=== PATIENT | female | born 1950 | race Two or more races ===

== ENCOUNTER 2017-04-15 09:21 | Emergency (ER) | payer OTHER ==
[~2017-04-15] VITALS: Ht 149.9 cm; Wt 83.9 kg
[~2017-04-15 09:21] MED LIST: ASPI-231 PO; ATOR20TA50 PO; FURO20TA3 PO; INSLANTI SC; LISI2.5T47 PO; METF-371 PO
[2017-04-15 10:14] VITALS: BP 177/66
== END 2017-04-15 10:48 | disposition home or self-care (01) ==
LOC: ER 09:21
DX: T16.1XXA Foreign body in right ear, initial encounter (principal); H66.91 Otitis media, unspecified, right ear; I11.0 Hypertensive heart disease with heart failure; I50.9 Heart failure, unspecified; E11.9 Type 2 diabetes mellitus without complications; E78.5 Hyperlipidemia, unspecified; Z86.73 Personal history of transient ischemic attack (TIA), and cerebral infarction without residual deficits; Z79.4 Long term (current) use of insulin

== ENCOUNTER 2017-11-30 21:20 | Inpatient (IN) | payer OTHER ==
[~2017-11-30] VITALS: Ht 157.5 cm; Wt 76.2 kg
[2017-11-30 22:11] LABS: Basophils # (auto) 0 uL; Basophils % (auto) 0.5 % (0.0-2.0); Eosinophils # (auto) 0.2 uL; Eosinophils % (auto) 2.3 % (0.0-7.0); Hematocrit 33.3 % (36.0-46.0); Lymphocytes # (auto) 1.2 uL; Mean Corpuscular Hemoglobin 32.6 pg (28.0-32.0); Mean Corpuscular Hgb Conc. 33.1 g/dL (32.0-36.0); Mean Corpuscular Volume 98.4 fL (80.0-100.0); Monocytes # (auto) 0.4 uL; Monocytes % (auto) 5.1 % (0.0-12.0); Neutrophils # (auto) 6.2 uL; Neutrophils % (auto) 77.1 % (37.0-80.0); Nucleated Red Blood Cells % 0.1 %; Platelet Count (auto) 265 10^3/uL (140-450); Red Blood Cells 3.38 10^6/uL (4.0-5.20); Red Cell Distribution Width 14.7 % (11.8-14.3); White Blood Cell 8.1 10^3/uL (4.4-10.8)
[2017-11-30 22:23] LABS: Albumin 3.6 g/dL (3.4-5.0); BUN/Creatinine Ratio 26.1; Calcium 9.1 mg/dL (8.5-10.1); Potassium 4.5 mmol/L (3.5-5.1)
[2017-11-30 22:26] LABS: Bilirubin, Total 0.3 mg/dL (0.2-1.0); Total Protein 7.8 g/dL (6.4-8.2)
[2017-12-01] MEDS ORDERED: LIDOCAINE W/ EPINEPHRINE 1% 20ML VIAL ONE (00:19)
[2017-12-01] MEDS ORDERED: NEOMYCIN-BACITRACIN-POLYM UNITDOSE PKG TOP OINT TOP ONE (00:30)
[2017-12-01] MEDS ORDERED: LIDOCAINE W/ EPINEPHRINE 1% 20ML VIAL ID ONE (00:30)
[2017-12-01 02:08] LABS: Urine Bacteria MOD /hpf (None Seen); Urine Blood Negative /uL (Negative); Urine Hyaline Cast FEW /lpf (0 - 2); Urine Mucus FEW (None Seen); Urine Specific Gravity 1.012 (1.001-1.035); Urine WBC 75 /hpf (0 - 5)
[2017-12-01] MEDS ORDERED: cefTRIAXone 1GM/10ml IVPUSH 10 ML IV ONE (02:30)
[2017-12-01] MEDS ORDERED: DEXTROSE (50%) 50ML SYRG IV PRN (07:45)
[2017-12-01] MEDS ORDERED: ACETAMINOPHEN 500 MG TAB PO PRN (07:45)
[2017-12-01] MEDS ORDERED: HYDROcodone-ACET 5/325MG TAB PO PRN (07:45)
[2017-12-01] MEDS ORDERED: ONDANSETRON HCL 4 MG/2 ML VIAL IV PRN (07:45)
[2017-12-01] MEDS ORDERED: cefTRIAXone 1GM/10ml IVPUSH 10 ML IV SCH (09:00)
[2017-12-01] MEDS ORDERED: FUROSEMIDE 20 MG TAB PO SCH (10:00)
[2017-12-01] MEDS ORDERED: LISINOPRIL 20 MG TAB PO SCH (10:00)
[2017-12-01] MEDS ORDERED: LISINOPRIL 5 MG TAB PO SCH (10:00)
[2017-12-01] MEDS ORDERED: LISI10TA6 PO (10:30)
[2017-12-01] MEDS ORDERED: LISI-646 PO (10:30)
[2017-12-01] MEDS: InsuLIN REG 1unit/0.01ml Soln (100units/ml) SC SCH ×2 (11:30→17:00)
[2017-12-01] MEDS: ACCU-CHEK COMFORT CURVE STRIP VI SCH ×2 (11:32→17:00)
[2017-12-01 14:00] VITALS: BP 158/71
[2017-12-01 17:00] VITALS: BP 158/71
[2017-12-01 17:40] VITALS: BP 143/73
[2017-12-01] MEDS ORDERED: ATORVASTATIN 20 MG TAB PO SCH (22:00)
== END 2017-12-01 18:48 | disposition home or self-care (01) | DRG 682 ==
LOC: ER 21:20 → OVERFLOW 21:21 → CENTRAL 12-01 14:00
PROVIDERS: ADMIT Nurse Practitioner Family; ATTEND Internal Medicine
DX: N17.0 Acute kidney failure with tubular necrosis (principal); G93.40 Encephalopathy, unspecified; N30.00 Acute cystitis without hematuria; S09.90XA Unspecified injury of head, initial encounter; S01.01XA Laceration without foreign body of scalp, initial encounter; I25.10 Atherosclerotic heart disease of native coronary artery without angina pectoris; I11.0 Hypertensive heart disease with heart failure; E78.5 Hyperlipidemia, unspecified; W18.39XA Other fall on same level, initial encounter; E11.9 Type 2 diabetes mellitus without complications; I50.9 Heart failure, unspecified; Z79.4 Long term (current) use of insulin; Z79.82 Long term (current) use of aspirin; Z86.73 Personal history of transient ischemic attack (TIA), and cerebral infarction without residual deficits; Y93.89 Activity, other specified; Y92.89 Other specified places as the place of occurrence of the external cause; Y99.8 Other external cause status; I25.2 Old myocardial infarction
CPT/HCPCS: 12032; 36415; 70450; 72125; 72128; 72131; 80053; 81001; 82962; 84484; 85025; 87086; 87088; 87186; 92610; 93005; 96374; 96376; J0696

== ENCOUNTER 2018-02-05 13:32 | Inpatient (IN) | payer OTHER ==
[~2018-02-05] VITALS: Ht 152.4 cm; Wt 67.7 kg
[~2018-02-05 13:32] MED LIST changes: +LISI-646 PO; +LISI10TA6 PO; -LISI2.5T47 PO
[2018-02-05 15:04] LABS: Basophils # (auto) 0 uL; Basophils % (auto) 0.6 % (0.0-2.0); Eosinophils # (auto) 0.1 uL; Eosinophils % (auto) 1.5 % (0.0-7.0); Hematocrit 35.8 % (36.0-46.0); Hemoglobin 11.8 g/dL (12.2-16.2); Lymphocytes # (auto) 1.5 uL; Lymphocytes % (auto) 24.1 % (10.0-50.0); Mean Corpuscular Hemoglobin 31.9 pg (28.0-32.0); Mean Corpuscular Hgb Conc. 32.9 g/dL (32.0-36.0); Mean Corpuscular Volume 96.8 fL (80.0-100.0); Monocytes # (auto) 0.3 uL; Monocytes % (auto) 5.8 % (0.0-12.0); Neutrophils # (auto) 4.1 uL; Nucleated Red Blood Cells % 0.1 %; Platelet Count (auto) 244 10^3/uL (140-450); Red Blood Cells 3.69 10^6/uL (4.0-5.20); Red Cell Distribution Width 14.6 % (11.8-14.3); White Blood Cell 6.1 10^3/uL (4.4-10.8)
[2018-02-05 15:21] LABS: Albumin 3.8 g/dL (3.4-5.0); Calcium 10.4 mg/dL (8.5-10.1); Potassium 5.2 mmol/L (3.5-5.1)
[2018-02-05 15:24] LABS: INR 0.95 (0.9-1.15); Partial Thromboplastin Time 26.6 sec (23.78-33.04); Prothrombin Time 10.2 sec (9.27-12.13)
[2018-02-05 15:25] LABS: Bilirubin, Total 0.3 mg/dL (0.2-1.0); Total Protein 7.6 g/dL (6.4-8.2)
[2018-02-05 15:26] LABS: BUN/Creatinine Ratio 27.2
[2018-02-05] MEDS ORDERED: ENOXAPARIN SOD 80 MG/0.8ML SYRINGE SC ONE (16:45)
[2018-02-05] MEDS ORDERED: TEMAZEPAM 15 MG CAP PO PRN (21:45)
[2018-02-05] MEDS ORDERED: DEXTROSE (50%) 50ML SYRG IV PRN (21:45)
[2018-02-05] MEDS ORDERED: HYDROcodone-ACET 5/325MG TAB PO PRN (21:45)
[2018-02-05] MEDS ORDERED: ACETAMINOPHEN 325 MG TAB PO PRN (21:45)
[2018-02-05] MEDS ORDERED: MORPHINE SULFATE 4 MG/ML SYR/VIAL IV PRN (21:45)
[2018-02-05] MEDS ORDERED: ONDANSETRON HCL 4 MG/2 ML VIAL IV PRN (21:45)
[2018-02-05] MEDS ORDERED: cefTRIAXone 1GM/50ML D5W 50 ML IV ONE (22:00)
[2018-02-05] MEDS: InsuLIN REG 1unit/0.01ml Soln (100units/ml) SC SCH (22:00)
[2018-02-05] MEDS: ATORVASTATIN 20 MG TAB PO SCH (22:21)
[2018-02-05] MEDS: ACCU-CHEK COMFORT CURVE STRIP VI SCH (22:22)
[2018-02-05 23:07] VITALS: BP 144/76
[2018-02-05 23:10] VITALS: BP 144/76
[2018-02-06 05:00] VITALS: BP 134/71
[2018-02-06 06:42] LABS: Basophils # (auto) 0 uL; Basophils % (auto) 0.9 % (0.0-2.0); Eosinophils # (auto) 0.2 uL; Eosinophils % (auto) 2.7 % (0.0-7.0); Hematocrit 31.5 % (36.0-46.0); Hemoglobin 10.6 g/dL (12.2-16.2); Lymphocytes # (auto) 1.6 uL; Lymphocytes % (auto) 29.7 % (10.0-50.0); Mean Corpuscular Hemoglobin 32.2 pg (28.0-32.0); Mean Corpuscular Hgb Conc. 33.6 g/dL (32.0-36.0); Mean Corpuscular Volume 95.9 fL (80.0-100.0); Monocytes # (auto) 0.4 uL; Monocytes % (auto) 7.6 % (0.0-12.0); Neutrophils # (auto) 3.3 uL; Neutrophils % (auto) 59.1 % (37.0-80.0); Platelet Count (auto) 217 10^3/uL (140-450); Red Blood Cells 3.29 10^6/uL (4.0-5.20); Red Cell Distribution Width 14.2 % (11.8-14.3); White Blood Cell 5.5 10^3/uL (4.4-10.8)
[2018-02-06] MEDS: ACCU-CHEK COMFORT CURVE STRIP VI SCH ×4 (06:55→22:25)
[2018-02-06] MEDS: InsuLIN REG 1unit/0.01ml Soln (100units/ml) SC SCH ×4 (06:55→22:25)
[2018-02-06 06:56] LABS: BUN/Creatinine Ratio 27.7; Calcium 9.2 mg/dL (8.5-10.1)
[2018-02-06 08:43] VITALS: BP 128/64
[2018-02-06] MEDS: cefTRIAXone 1GM/50ML D5W 50 ML IV SCH (08:55)
[2018-02-06] MEDS: ASPirin-EC 81 mg tab PO SCH (08:55)
[2018-02-06] MEDS: FUROSEMIDE 20 MG TAB PO SCH (08:57)
[2018-02-06] MEDS: FAMOTIDINE 20 MG TAB PO SCH (08:57)
[2018-02-06] MEDS: CLINDAMYCIN 600MG IV 50 ML IV SCH ×3 (09:44→22:09)
[2018-02-06] MEDS ORDERED: ENOXAPARIN SOD 30 MG/0.3 ML SYRINGE SC SCH (10:00)
[2018-02-06] MEDS ORDERED: LISINOPRIL 20 MG TAB PO SCH (10:00)
[2018-02-06] MEDS ORDERED: MORPHINE SULFATE 10 MG/ML INJ 1ML SDV IV PRN (11:45)
[2018-02-06 12:25] VITALS: BP 134/71
[2018-02-06 16:23] VITALS: BP 132/67
[2018-02-06] MEDS ORDERED: ENOXAPARIN SOD 80 MG/0.8ML SYRINGE SC SCH (22:00)
[2018-02-06] MEDS: ATORVASTATIN 20 MG TAB PO SCH (22:09)
[2018-02-07 05:00] VITALS: BP 149/80
[2018-02-07] MEDS: InsuLIN REG 1unit/0.01ml Soln (100units/ml) SC SCH ×3 (05:29→17:00)
[2018-02-07] MEDS: CLINDAMYCIN 600MG IV 50 ML IV SCH ×2 (05:29→14:42)
[2018-02-07] MEDS: ACCU-CHEK COMFORT CURVE STRIP VI SCH ×3 (05:29→17:00)
[2018-02-07 06:50] LABS: BUN/Creatinine Ratio 26.3; Calcium 8.7 mg/dL (8.5-10.1); Magnesium 1.7 mg/dL (1.6-2.6); Potassium 3.8 mmol/L (3.5-5.1)
[2018-02-07 06:53] LABS: Basophils # (auto) 0 uL; Basophils % (auto) 0.4 % (0.0-2.0); Eosinophils # (auto) 0.2 uL; Eosinophils % (auto) 4.4 % (0.0-7.0); Hematocrit 29.1 % (36.0-46.0); Hemoglobin 9.9 g/dL (12.2-16.2); Lymphocytes # (auto) 2.2 uL; Lymphocytes % (auto) 41.7 % (10.0-50.0); Mean Corpuscular Hgb Conc. 34.2 g/dL (32.0-36.0); Mean Corpuscular Volume 96.5 fL (80.0-100.0); Monocytes # (auto) 0.4 uL; Monocytes % (auto) 7.5 % (0.0-12.0); Neutrophils # (auto) 2.5 uL; Platelet Count (auto) 210 10^3/uL (140-450); Red Blood Cells 3.01 10^6/uL (4.0-5.20); Red Cell Distribution Width 14.4 % (11.8-14.3); White Blood Cell 5.3 10^3/uL (4.4-10.8)
[2018-02-07 07:00] LABS: % Iron Saturation 29.7 % (15-50)
[2018-02-07 08:37] VITALS: BP 129/67
[2018-02-07 09:25] LABS: Ferritin 107.4 ng/mL (10-322)
[2018-02-07 09:26] LABS: Folate (Folic Acid) 11.5 ng/mL (5.38-24)
[2018-02-07] MEDS ORDERED: ENOXAPARIN SOD 80 MG/0.8ML SYRINGE SC SCH (10:00)
[2018-02-07] MEDS: ASPirin-EC 81 mg tab PO SCH (10:12)
[2018-02-07] MEDS: FAMOTIDINE 20 MG TAB PO SCH (10:12)
[2018-02-07] MEDS: FUROSEMIDE 20 MG TAB PO SCH (10:12)
[2018-02-07] MEDS: cefTRIAXone 1GM/50ML D5W 50 ML IV SCH (10:12)
[2018-02-07 13:23] VITALS: BP 117/63
[2018-02-07 16:41] VITALS: BP 140/67
[2018-02-07 17:35] VITALS: BP 140/67
== END 2018-02-07 18:42 | disposition home or self-care (01) | DRG 300 ==
LOC: ER 13:32 → WEST WING 22:33
PROVIDERS: ADMIT Nurse Practitioner Family; ATTEND Internal Medicine
DX: I82.811 Embolism and thrombosis of superficial veins of right lower extremity (principal); L03.115 Cellulitis of right lower limb; I31.3 Pericardial effusion (noninflammatory); N18.3 Chronic kidney disease, stage 3 (moderate); I12.9 Hypertensive chronic kidney disease with stage 1 through stage 4 chronic kidney disease, or unspecified chronic kidney disease; E11.22 Type 2 diabetes mellitus with diabetic chronic kidney disease; E11.51 Type 2 diabetes mellitus with diabetic peripheral angiopathy without gangrene; I82.432 Acute embolism and thrombosis of left popliteal vein; I70.0 Atherosclerosis of aorta; K80.20 Calculus of gallbladder without cholecystitis without obstruction; D64.9 Anemia, unspecified; I82.431 Acute embolism and thrombosis of right popliteal vein; S80.811A Abrasion, right lower leg, initial encounter; W18.39XA Other fall on same level, initial encounter; E78.5 Hyperlipidemia, unspecified; I25.10 Atherosclerotic heart disease of native coronary artery without angina pectoris; R91.1 Solitary pulmonary nodule; R29.6 Repeated falls; Z79.01 Long term (current) use of anticoagulants; Z79.4 Long term (current) use of insulin; Z86.73 Personal history of transient ischemic attack (TIA), and cerebral infarction without residual deficits; Z79.82 Long term (current) use of aspirin; Z82.49 Family history of ischemic heart disease and other diseases of the circulatory system; Z83.3 Family history of diabetes mellitus; I25.2 Old myocardial infarction; Y93.89 Activity, other specified; Y92.098 Other place in other non-institutional residence as the place of occurrence of the external cause; Y99.8 Other external cause status
CPT/HCPCS: 36415; 71045; 71250; 73590; 80048; 80053; 81241; 82607; 82728; 82746; 82962; 83090; 83540; 83550; 83735; 85025; 85301; 85303; 85306; 85610; 85613; 85670; 85705; 85730; 85732; 86147; 93005; 93926; 93970; 94761; 96372; 96374; G0378; J0696; J1815; J3490

== ENCOUNTER 2018-02-20 10:46 | Inpatient (IN) | payer OTHER ==
[~2018-02-20] VITALS: Ht 149.9 cm; Wt 69.5 kg
[~2018-02-20 10:46] MED LIST changes: -ASPI-231 PO; -FURO20TA3 PO; -LISI-646 PO
[2018-02-20] MEDS ORDERED: SODIUM CHLORIDE 0.9% 1,000 ML IV ONE (11:17)
[2018-02-20 11:40] LABS: Basophils # (auto) 0 uL; Basophils % (auto) 0.9 % (0.0-2.0); Eosinophils # (auto) 0.1 uL; Eosinophils % (auto) 2.2 % (0.0-7.0); Hematocrit 32.4 % (36.0-46.0); Hemoglobin 10.6 g/dL (12.2-16.2); Lymphocytes # (auto) 1.8 uL; Lymphocytes % (auto) 34.9 % (10.0-50.0); Mean Corpuscular Hemoglobin 31.5 pg (28.0-32.0); Mean Corpuscular Hgb Conc. 32.6 g/dL (32.0-36.0); Mean Corpuscular Volume 96.8 fL (80.0-100.0); Monocytes # (auto) 0.3 uL; Monocytes % (auto) 4.9 % (0.0-12.0); Neutrophils % (auto) 57.1 % (37.0-80.0); Platelet Count (auto) 254 10^3/uL (140-450); Red Blood Cells 3.35 10^6/uL (4.0-5.20); Red Cell Distribution Width 14.8 % (11.8-14.3); White Blood Cell 5.2 10^3/uL (4.4-10.8)
[2018-02-20 11:53] LABS: INR 1.19 (0.9-1.15); Partial Thromboplastin Time 34.5 sec (23.78-33.04); Prothrombin Time 12.6 sec (9.27-12.13)
[2018-02-20 11:59] LABS: Albumin 3.6 g/dL (3.4-5.0); Anion Gap 4 (5-15); Blood Urea Nitrogen 28 mg/dL (7-18); Calcium 9.2 mg/dL (8.5-10.1); Carbon Dioxide 28 mmol/L (21-32); Chloride 112 mmol/L (98-107); Glucose 78 mg/dL (74-106); Sodium 144 mmol/L (136-145)
[2018-02-20 12:03] LABS: Alanine Aminotransferase 15 U/L (13-56); Alkaline Phosphatase 50 U/L (45-117); Aspartate Aminotransferase 17 U/L (15-37); BUN/Creatinine Ratio 21.9; Bilirubin, Total 0.3 mg/dL (0.2-1.0); GFR African American 53 mL/min; GFR Non-African American 44 mL/min; Total Protein 7.3 g/dL (6.4-8.2)
[2018-02-20 13:39] LABS: Urine Bacteria FEW /hpf (None Seen); Urine Blood Negative /uL (Negative); Urine Specific Gravity 1.016 (1.001-1.035); Urine WBC 20 /hpf (0 - 5)
[2018-02-20] MEDS ORDERED: ACETAMINOPHEN 500 MG TAB PO PRN (14:00)
[2018-02-20] MEDS ORDERED: MORPHINE SULFATE 4 MG/ML SYR/VIAL IV PRN ×2 (14:00)
[2018-02-20] MEDS ORDERED: TEMAZEPAM 15 MG CAP PO PRN (14:00)
[2018-02-20] MEDS ORDERED: CLINDAMYCIN 600MG IV 50 ML IV SCH (14:00)
[2018-02-20] MEDS ORDERED: LORazepam 0.5 MG TAB PO PRN (14:00)
[2018-02-20] MEDS ORDERED: DEXTROSE (50%) 50ML SYRG IV PRN (14:00)
[2018-02-20] MEDS ORDERED: HYDROcodone-ACET 5/325MG TAB PO PRN (14:00)
[2018-02-20] MEDS ORDERED: NITROGLYCERIN 0.4 MG SL TAB SL PRN (14:00)
[2018-02-20] MEDS ORDERED: cefTRIAXone 1GM/50ML D5W 50 ML IV ONE (14:00)
[2018-02-20] MEDS ORDERED: PROMETHAZINE HCL 25 MG/ML 1ML IV PRN (14:00)
[2018-02-20] MEDS ORDERED: PANTOPRAZOLE 40 MG TAB PO ONE (14:15)
[2018-02-20 14:50] LABS: CRP High Sensitivity 0.49 mg/dL (< 0.3)
[2018-02-20] MEDS: CLINDAMYCIN 600MG IV 50 ML IV SCH ×2 (15:29→23:00)
[2018-02-20] MEDS ORDERED: LISINOPRIL 10 MG TAB PO ONE (15:30)
[2018-02-20 16:15] VITALS: BP 146/72
[2018-02-20] MEDS: ACCU-CHEK COMFORT CURVE STRIP VI SCH ×2 (16:34→21:48)
[2018-02-20] MEDS: InsuLIN REG 1unit/0.01ml Soln (100units/ml) SC SCH ×2 (16:34→21:48)
[2018-02-20 17:38] VITALS: BP 144/75
[2018-02-20 18:22] LABS: Hematocrit 30.6 % (36.0-46.0)
[2018-02-20] MEDS ORDERED: METF-371 PO (18:27)
[2018-02-20] MEDS ORDERED: FURO20TA3 PO (18:27)
[2018-02-20] MEDS ORDERED: ASPI-231 PO (18:27)
[2018-02-20] MEDS ORDERED: DOCU100T15 PO (18:27)
[2018-02-20] MEDS ORDERED: RIV15T PO (18:28)
[2018-02-20] MEDS: ATORVASTATIN 20 MG TAB PO SCH (21:49)
[2018-02-20 22:00] VITALS: BP 148/75
[2018-02-21 01:10] LABS: Hematocrit 26.2 % (36.0-46.0); Hemoglobin 8.7 g/dL (12.2-16.2)
[2018-02-21 05:00] VITALS: BP 115/65
[2018-02-21 06:16] LABS: Basophils # (auto) 0 uL; Basophils % (auto) 0.3 % (0.0-2.0); Eosinophils # (auto) 0.1 uL; Eosinophils % (auto) 2.2 % (0.0-7.0); Hematocrit 28.4 % (36.0-46.0); Hemoglobin 9.4 g/dL (12.2-16.2); Lymphocytes # (auto) 0.7 uL; Lymphocytes % (auto) 11.3 % (10.0-50.0); Mean Corpuscular Hemoglobin 32.1 pg (28.0-32.0); Mean Corpuscular Volume 97.5 fL (80.0-100.0); Monocytes # (auto) 0.3 uL; Monocytes % (auto) 5.9 % (0.0-12.0); Neutrophils # (auto) 4.7 uL; Neutrophils % (auto) 80.3 % (37.0-80.0); Platelet Count (auto) 220 10^3/uL (140-450); Red Blood Cells 2.92 10^6/uL (4.0-5.20); Red Cell Distribution Width 14.8 % (11.8-14.3); White Blood Cell 5.9 10^3/uL (4.4-10.8)
[2018-02-21] MEDS: CLINDAMYCIN 600MG IV 50 ML IV SCH ×3 (06:19→23:13)
[2018-02-21] MEDS: InsuLIN REG 1unit/0.01ml Soln (100units/ml) SC SCH ×4 (06:53→22:00)
[2018-02-21] MEDS: ACCU-CHEK COMFORT CURVE STRIP VI SCH ×4 (06:54→23:13)
[2018-02-21 08:47] VITALS: BP 122/65
[2018-02-21] MEDS: cefTRIAXone 1GM/50ML D5W 50 ML IV SCH (09:19)
[2018-02-21 09:35] LABS: Albumin 2.9 g/dL (3.4-5.0); Calcium 8.2 mg/dL (8.5-10.1); Potassium 4.2 mmol/L (3.5-5.1)
[2018-02-21 09:38] LABS: Bilirubin, Total 0.4 mg/dL (0.2-1.0); Total Protein 5.8 g/dL (6.4-8.2)
[2018-02-21] MEDS ORDERED: PATIENTS OWN MEDICATION (Atorvastatin Calcium 1 TAB) PO SCH (10:00)
[2018-02-21] MEDS ORDERED: PANTOPRAZOLE 40 MG TAB PO SCH (10:00)
[2018-02-21] MEDS: LISINOPRIL 10 MG TAB PO SCH (11:42)
[2018-02-21 12:36] VITALS: BP 128/79
[2018-02-21 17:00] VITALS: BP 135/75
[2018-02-21] MEDS: ATORVASTATIN 20 MG TAB PO SCH (21:46)
[2018-02-21] MEDS: PANTOPRAZOLE 40 MG TAB PO SCH (21:46)
[2018-02-21 22:14] VITALS: BP 124/60
[2018-02-22 05:39] VITALS: BP 122/65
[2018-02-22 06:00] LABS: Basophils # (auto) 0 uL; Basophils % (auto) 0.7 % (0.0-2.0); Eosinophils # (auto) 0.4 uL; Eosinophils % (auto) 8.1 % (0.0-7.0); Hematocrit 28.2 % (36.0-46.0); Hemoglobin 9.5 g/dL (12.2-16.2); Lymphocytes % (auto) 43.1 % (10.0-50.0); Mean Corpuscular Hemoglobin 32.3 pg (28.0-32.0); Mean Corpuscular Hgb Conc. 33.6 g/dL (32.0-36.0); Mean Corpuscular Volume 96.2 fL (80.0-100.0); Monocytes # (auto) 0.4 uL; Monocytes % (auto) 7.7 % (0.0-12.0); Neutrophils # (auto) 1.9 uL; Neutrophils % (auto) 40.4 % (37.0-80.0); Nucleated Red Blood Cells % 0.1 %; Platelet Count (auto) 219 10^3/uL (140-450); Red Blood Cells 2.94 10^6/uL (4.0-5.20); Red Cell Distribution Width 14.4 % (11.8-14.3); White Blood Cell 4.7 10^3/uL (4.4-10.8)
[2018-02-22 06:14] LABS: % Iron Saturation 30.3 % (15-50)
[2018-02-22 06:16] LABS: Calcium 8.1 mg/dL (8.5-10.1); Magnesium 2.1 mg/dL (1.6-2.6); Potassium 4.3 mmol/L (3.5-5.1)
[2018-02-22 06:20] LABS: INR 1.03 (0.9-1.15); Partial Thromboplastin Time 29.1 sec (23.78-33.04)
[2018-02-22 06:37] LABS: Ferritin 90.8 ng/mL (10-322); Folate (Folic Acid) 12.94 ng/mL (5.38-24)
[2018-02-22] MEDS: InsuLIN REG 1unit/0.01ml Soln (100units/ml) SC SCH ×4 (07:00→22:00)
[2018-02-22] MEDS: CLINDAMYCIN 600MG IV 50 ML IV SCH ×3 (07:13→23:16)
[2018-02-22] MEDS: ACCU-CHEK COMFORT CURVE STRIP VI SCH ×4 (07:16→23:20)
[2018-02-22] MEDS: cefTRIAXone 1GM/50ML D5W 50 ML IV SCH (08:49)
[2018-02-22] MEDS: PANTOPRAZOLE 40 MG TAB PO SCH ×3 (08:49→23:15)
[2018-02-22 09:00] VITALS: BP 123/64
[2018-02-22] MEDS ORDERED: SODIUM CHLORIDE LOCK 10 ML ONE (09:43)
[2018-02-22] MEDS ORDERED: LIDOCAINE VISCOUS 2% 15ML UD ONE (09:44)
[2018-02-22] MEDS ORDERED: diphenhdrAMINE HCL 50 MG/1 ML VL ONE (09:44)
[2018-02-22] MEDS: MIDAZOLAM HCL 5 MG/ML-1ML VIAL ONE ×2 (12:40→12:43)
[2018-02-22] MEDS: fentaNYL CITRATE 100 MCG/2 ML VL ONE ×2 (12:40→12:43)
[2018-02-22 13:00] VITALS: BP 149/72
[2018-02-22] MEDS: CYANOCOBALAMIN 500 MCG TAB PO SCH (14:15)
[2018-02-22] MEDS: LISINOPRIL 10 MG TAB PO SCH (14:15)
[2018-02-22 17:00] VITALS: BP 140/74
[2018-02-22] MEDS ORDERED: RIVAROXABAN 15 MG TAB PO SCH (17:30)
[2018-02-22 22:00] VITALS: BP 111/55
[2018-02-22] MEDS: ATORVASTATIN 20 MG TAB PO SCH (23:15)
[2018-02-23 05:00] VITALS: BP 124/66
[2018-02-23 06:20] LABS: Basophils # (auto) 0 uL; Basophils % (auto) 0.6 % (0.0-2.0); Eosinophils # (auto) 0.3 uL; Eosinophils % (auto) 5.5 % (0.0-7.0); Hematocrit 26.8 % (36.0-46.0); Lymphocytes # (auto) 1.9 uL; Mean Corpuscular Hemoglobin 32.6 pg (28.0-32.0); Mean Corpuscular Hgb Conc. 33.6 g/dL (32.0-36.0); Mean Corpuscular Volume 96.9 fL (80.0-100.0); Monocytes # (auto) 0.5 uL; Monocytes % (auto) 8.8 % (0.0-12.0); Neutrophils # (auto) 2.7 uL; Neutrophils % (auto) 50.1 % (37.0-80.0); Platelet Count (auto) 216 10^3/uL (140-450); Red Blood Cells 2.76 10^6/uL (4.0-5.20); Red Cell Distribution Width 14.7 % (11.8-14.3); White Blood Cell 5.4 10^3/uL (4.4-10.8)
[2018-02-23] MEDS: CLINDAMYCIN 600MG IV 50 ML IV SCH ×2 (06:24→15:05)
[2018-02-23 06:32] LABS: BUN/Creatinine Ratio 15.1; Calcium 8.2 mg/dL (8.5-10.1); Magnesium 2.3 mg/dL (1.6-2.6); Potassium 4.7 mmol/L (3.5-5.1)
[2018-02-23] MEDS: ACCU-CHEK COMFORT CURVE STRIP VI SCH ×2 (06:32→13:04)
[2018-02-23] MEDS: InsuLIN REG 1unit/0.01ml Soln (100units/ml) SC SCH ×2 (06:32→11:30)
[2018-02-23 09:00] VITALS: BP 132/60
[2018-02-23] MEDS: cefTRIAXone 1GM/50ML D5W 50 ML IV SCH (09:00)
[2018-02-23] MEDS: CYANOCOBALAMIN 500 MCG TAB PO SCH (09:00)
[2018-02-23] MEDS: PANTOPRAZOLE 40 MG TAB PO SCH (09:01)
[2018-02-23] MEDS ORDERED: DOCUSATE SOD 100 MG CAP PO SCH (10:00)
[2018-02-23 13:00] VITALS: BP 125/66
[2018-02-23] MEDS: LISINOPRIL 10 MG TAB PO SCH (13:05)
[2018-02-23 16:48] VITALS: BP 125/66
[2018-02-23 17:00] VITALS: BP 140/86
== END 2018-02-23 17:20 | disposition home health service (06) | DRG 378 ==
LOC: ER 10:46 → TELE 14:23 → TELE-EAST 16:30
PROVIDERS: ADMIT Internal Medicine; ATTEND Internal Medicine
PROC: 0DJ08ZZ Inspection of Upper Intestinal Tract, Via Natural or Artificial Opening Endoscopic (ICD-10-PCS; principal; 2018-02-22 12:40)
DX: K92.2 Gastrointestinal hemorrhage, unspecified (principal); L03.115 Cellulitis of right lower limb; N39.0 Urinary tract infection, site not specified; E78.5 Hyperlipidemia, unspecified; K80.20 Calculus of gallbladder without cholecystitis without obstruction; K44.9 Diaphragmatic hernia without obstruction or gangrene; D63.1 Anemia in chronic kidney disease; F03.90 Unspecified dementia, unspecified severity, without behavioral disturbance, psychotic disturbance, mood disturbance, and anxiety; I12.9 Hypertensive chronic kidney disease with stage 1 through stage 4 chronic kidney disease, or unspecified chronic kidney disease; E11.22 Type 2 diabetes mellitus with diabetic chronic kidney disease; I25.10 Atherosclerotic heart disease of native coronary artery without angina pectoris; R91.1 Solitary pulmonary nodule; S81.801A Unspecified open wound, right lower leg, initial encounter; X58.XXXA Exposure to other specified factors, initial encounter; K42.9 Umbilical hernia without obstruction or gangrene; K59.00 Constipation, unspecified; N18.9 Chronic kidney disease, unspecified; R04.0 Epistaxis; Z79.01 Long term (current) use of anticoagulants; Z80.3 Family history of malignant neoplasm of breast; Z82.3 Family history of stroke; Z82.49 Family history of ischemic heart disease and other diseases of the circulatory system; Z83.3 Family history of diabetes mellitus; Z86.718 Personal history of other venous thrombosis and embolism; Z86.73 Personal history of transient ischemic attack (TIA), and cerebral infarction without residual deficits; Z98.49 Cataract extraction status, unspecified eye; Y93.89 Activity, other specified; Y92.89 Other specified places as the place of occurrence of the external cause; I25.2 Old myocardial infarction
CPT/HCPCS: 36415; 71045; 74176; 80048; 80053; 81001; 82150; 82607; 82728; 82746; 82962; 83036; 83540; 83550; 83690; 83735; 83880; 84484; 85014; 85018; 85025; 85045; 85610; 85652; 85730; 86141; 87081; 92610; 93971; 97116; A6257; G0378; J0696; J1815; J2250; J3490

== ENCOUNTER 2019-12-12 15:25 | Emergency (ER) | payer OTHER ==
[~2019-12-12] VITALS: Ht 157.5 cm; Wt 56.8 kg
[~2019-12-12 15:25] MED LIST changes: +ASPI-231 PO; +DOCU100T15 PO; +FURO20TA3 PO; +LISI-648 PO; -LISI10TA6 PO
[2019-12-12] MEDS ORDERED: HYDROcodone-ACET 5/325MG TAB PO ONE (18:00)
[2019-12-12 18:07] VITALS: BP 192/75
[2019-12-12] MEDS ORDERED: cloNIDine HCL 0.1 MG TAB PO ONE (19:00)
== END 2019-12-12 19:18 | disposition home or self-care (01) ==
LOC: ER 15:25
DX: S42.211A Unspecified displaced fracture of surgical neck of right humerus, initial encounter for closed fracture (principal); S09.8XXA Other specified injuries of head, initial encounter; I16.0 Hypertensive urgency; E11.9 Type 2 diabetes mellitus without complications; I10 Essential (primary) hypertension; E78.5 Hyperlipidemia, unspecified; Z79.82 Long term (current) use of aspirin; Z79.899 Other long term (current) drug therapy; W06.XXXA Fall from bed, initial encounter; Y93.89 Activity, other specified; Y92.003 Bedroom of unspecified non-institutional (private) residence as the place of occurrence of the external cause; Y99.8 Other external cause status
CPT/HCPCS: 70450; 73030; 73060; 73090

== ENCOUNTER 2021-03-18 05:19 | Inpatient (IN) | payer OTHER ==
[~2021-03-18] VITALS: Ht 157.5 cm; Wt 53.1 kg
[2021-03-18] VITALS (19 sets, daily range): BP systolic 66–146; BP diastolic 29–109
[~2021-03-18 05:19] MED LIST changes: -ASPI-231 PO; +ASPI1TAB20 PO; -LISI-648 PO; +LISI-716 PO
[2021-03-18] MEDS ORDERED: SUCCINYLCHOLINE CHLORIDE 20 MG/ML 10ML VIAL IV ONE ×2 (05:34→06:00)
[2021-03-18] MEDS ORDERED: MIDAZOLAM DRIP 50 mg/50mL 50 ML IV ONE (05:34)
[2021-03-18] MEDS ORDERED: ETOMIDATE (2MG/ML) 20ML VIAL IV ONE ×2 (05:34→06:00)
[2021-03-18] MEDS ORDERED: NOREPINEPHRINE 8 MG/250ML KIT 250 ML IV ONE (05:41)
[2021-03-18] MEDS: NOREPINEPHRINE 8 MG/250ML KIT 250 ML IV SCH ×2 (05:50→10:29)
[2021-03-18 06:47] LABS: Lactic Acid w/Reflex 12.2 mmol/L (0.4-2.0)
[2021-03-18] MEDS ORDERED: SODIUM BICARBONATE 8.4 % INJ 50ML VIAL IV ONE ×3 (07:29→11:15)
[2021-03-18] MEDS ORDERED: cefTRIAXone 1GM/50ML D5W 50 ML IV ONE (07:30)
[2021-03-18] MEDS ORDERED: PHENYLEPHRINE IV 250 ML IV ONE (07:46)
[2021-03-18] MEDS: MIDAZOLAM DRIP 50 mg/50mL 50 ML IV SCH ×2 (08:00→14:13)
[2021-03-18 08:09] LABS: Hemoglobin 10.2 g/dL (12.2-16.2); Mean Corpuscular Hemoglobin 32.5 pg (28.0-32.0); Mean Corpuscular Hgb Conc. 31.1 g/dL (32.0-36.0); Mean Corpuscular Volume 104.6 fL (80.0-100.0); Red Blood Cells 3.15 10^6/uL (4.0-5.20); Red Cell Distribution Width 16.9 % (11.8-14.3); White Blood Cell 7.7 10^3/uL (4.4-10.8)
[2021-03-18] MEDS ORDERED: PHENYLEPHRINE IV 250 ML IV SCH (08:15)
[2021-03-18 08:25] LABS: Albumin 1.9 g/dL (3.4-5.0); Calcium 6.8 mg/dL (8.5-10.1); Magnesium 3.3 mg/dL (1.6-2.6); Potassium 4.8 mmol/L (3.5-5.1)
[2021-03-18 08:30] LABS: BUN/Creatinine Ratio 18.7; Bilirubin, Total 0.4 mg/dL (0.2-1.0); Total Protein 4.7 g/dL (6.4-8.2)
[2021-03-18] MEDS ORDERED: SODIUM CHLORIDE 0.9% 1,000 ML IV ONE (08:45)
[2021-03-18 09:01] LABS: Urine Bacteria MANY /hpf (None Seen); Urine Blood 2+ /uL (Negative); Urine Mucus FEW (None Seen); Urine Specific Gravity 1.017 (1.001-1.035); Urine WBC 192 /hpf (0 - 5)
[2021-03-18 09:06] LABS: Basophils % (manual) 0 (0.0-2.0); Blast Cells 0; Eosinophils % (manual) 0 (0-7); Myelocytes % 0; Promyelocytes % 0; Reactive Lymphocytes 0
[2021-03-18] MEDS: VASOPRESSIN 50 UNITS in D5W 5% 247.5 ML IV SCH (09:10)
[2021-03-18] MEDS ORDERED: AMIODARONE 450mg/250ml AE 250 ML IV ONE (10:39)
[2021-03-18 10:48] LABS: INR 1.26 (0.9-1.15); Partial Thromboplastin Time 54.9 sec (23.6-33.0)
[2021-03-18] MEDS ORDERED: NOREPINEPHRINE BITARTRATE 16 MG in SODIUM CHL 0.9% 234 ML IV SCH (11:00)
[2021-03-18] MEDS ORDERED: DexAMETHasone SOD PHOS 10MG/1ML VIAL INJ IV ONE (11:15)
[2021-03-18] MEDS ORDERED: SODIUM BICARBONATE 50ML VIAL 100 ML in SOD CHL 0.45% 1,000 ML IV ONE (11:15)
[2021-03-18] MEDS: PHENYLEPHRINE INJ 40 MG in SODIUM CHL 0.9% 246 ML IV SCH (11:51)
[2021-03-18 12:11] LABS: Band Neutrophils % (manual) 41; Lymphocytes % (manual) 12 (10.0-50.0); Metamyelocytes % 2; Monocytes % (manual) 7 (0-12)
[2021-03-18] MEDS ORDERED: NITROGLYCERIN 0.4 MG SL TAB SL PRN (14:00)
[2021-03-18] MEDS ORDERED: MORPHINE SULFATE INJECTION 2 MG/ML SYRG IV PRN (14:00)
[2021-03-18] MEDS ORDERED: ACETAMINOPHEN 325 MG TAB PO PRN (14:00)
[2021-03-18] MEDS ORDERED: ONDANSETRON HCL 4 MG/2 ML VIAL IV PRN (14:00)
[2021-03-18] MEDS ORDERED: FUROSEMIDE 100 MG/10ML VIAL IV ONE (16:00)
[2021-03-18] MEDS: AMIODARONE 450mg/250ml AE 250 ML IV SCH (16:45)
[2021-03-18] MEDS ORDERED: ASCORBIC ACID 500 MG TAB PO SCH (22:00)
[2021-03-18] MEDS ORDERED: HEPARIN SODIUM (PORCINE) 5000 UNITS/ML 1ML VIAL SC SCH (22:00)
[2021-03-19] VITALS (31 sets, daily range): BP systolic 80–109; BP diastolic 34–48
[2021-03-19] MEDS ORDERED: NOREPINEPHRINE 8 MG/250ML KIT 500 ML IV ONE (00:38)
[2021-03-19] MEDS ORDERED: PHENYLEPHRINE IV 250 ML IV ONE (02:38)
[2021-03-19] MEDS ORDERED: PHENYLEPHRINE HCL 10 MG/ML VL ONE (02:38)
[2021-03-19] MEDS: PHENYLEPHRINE INJ 40 MG in SODIUM CHL 0.9% 246 ML IV SCH (02:45)
[2021-03-19] MEDS: AMIODARONE 450mg/250ml AE 250 ML IV SCH (02:49)
[2021-03-19 03:54] LABS: Hematocrit 26.8 % (36.0-46.0); Hemoglobin 8.7 g/dL (12.2-16.2); Mean Corpuscular Hgb Conc. 32.5 g/dL (32.0-36.0); Mean Corpuscular Volume 98.5 fL (80.0-100.0); Red Blood Cells 2.72 10^6/uL (4.0-5.20); Red Cell Distribution Width 16.1 % (11.8-14.3); White Blood Cell 9.9 10^3/uL (4.4-10.8)
[2021-03-19 04:04] LABS: Basophils % (manual) 0 (0.0-2.0); Blast Cells 0; Eosinophils % (manual) 0 (0-7); Promyelocytes % 0; Reactive Lymphocytes 0
[2021-03-19 04:58] LABS: BUN/Creatinine Ratio 20.5
[2021-03-19 04:59] LABS: Albumin 1.5 g/dL (3.4-5.0); Bilirubin, Total 0.5 mg/dL (0.2-1.0); Total Protein 3.9 g/dL (6.4-8.2)
[2021-03-19 05:01] LABS: Calcium 5.8 mg/dL (8.5-10.1); Potassium 5.6 mmol/L (3.5-5.1)
[2021-03-19] MEDS ORDERED: PHENYLEPHRINE IV 250 ML IV SCH (06:15)
[2021-03-19] MEDS ORDERED: SODIUM BICARBONATE 50ML VIAL 150 ML in D5W 5% 1,000 ML IV SCH ×2 (07:00→09:45)
[2021-03-19] MEDS: VASOPRESSIN 50 UNITS in D5W 5% 247.5 ML IV SCH (07:06)
[2021-03-19 07:07] LABS: Band Neutrophils % (manual) 49; Lymphocytes % (manual) 5 (10.0-50.0); Metamyelocytes % 2; Monocytes % (manual) 1 (0-12); Myelocytes % 19
[2021-03-19] MEDS ORDERED: InsuLIN REG 1unit/0.01ml Soln (100units/ml) IV ONE (09:30)
[2021-03-19] MEDS ORDERED: EPINEPHrine HCL 250 ML IV SCH (09:30)
[2021-03-19] MEDS ORDERED: CALCIUM GLUC 1,000mg/50ml-NS 50 ML IV ONE (09:30)
[2021-03-19] MEDS ORDERED: DEXTROSE (50%) 50ML SYRG IV ONE (09:30)
[2021-03-19] MEDS ORDERED: EPINEPHrine HCL 250 ML IV ONE (09:36)
[2021-03-19] MEDS ORDERED: VANCOMYCIN PER PHARMACY 0 MG IV SCH (09:45)
[2021-03-19] MEDS ORDERED: cefTRIAXone 1GM/50ML D5W 50 ML IV SCH (10:00)
[2021-03-19] MEDS ORDERED: ENOXAPARIN SOD 40 MG/0.4 ML SYRINGE SC SCH (10:00)
[2021-03-19] MEDS ORDERED: ZINC SULFATE 220mg CAP or TAB PO SCH (10:00)
[2021-03-19] MEDS ORDERED: DexAMETHasone SOD PHOS 10MG/1ML VIAL INJ IV SCH (10:00)
[2021-03-19] MEDS ORDERED: NOREPINEPHRINE 8 MG/250ML KIT 250 ML IV ONE ×2 (10:12→17:22)
[2021-03-19] MEDS ORDERED: VANCOMYCIN 1GM/250ML 250 ML IV ONE (11:00)
== END 2021-03-19 13:25 | DRG 871 ==
LOC: EDBD 05:19 → ER 05:19 → EDUNIT# 05:19 → TELE 13:58 → DOU IN ICU 20:33
PROVIDERS: ADMIT Internal Medicine; ATTEND Internal Medicine
PROC: 5A1945Z Respiratory Ventilation, 24-96 Consecutive Hours (ICD-10-PCS; principal; 2021-03-18)
PROC: 0BH17EZ Insertion of Endotracheal Airway into Trachea, Via Natural or Artificial Opening (ICD-10-PCS; 2021-03-18)
PROC: 02HV33Z Insertion of Infusion Device into Superior Vena Cava, Percutaneous Approach (ICD-10-PCS; 2021-03-18)
PROC: 4A143B0 Monitoring of Venous Pressure, Central, Percutaneous Approach (ICD-10-PCS; 2021-03-18)
DX: A41.89 Other specified sepsis (principal); U07.1 COVID-19; J12.82 Pneumonia due to coronavirus disease 2019; R65.21 Severe sepsis with septic shock; G93.41 Metabolic encephalopathy; K72.00 Acute and subacute hepatic failure without coma; J96.01 Acute respiratory failure with hypoxia; G92.8 Other toxic encephalopathy; I21.A1 Myocardial infarction type 2; N17.9 Acute kidney failure, unspecified; E11.9 Type 2 diabetes mellitus without complications; B96.89 Other specified bacterial agents as the cause of diseases classified elsewhere; I10 Essential (primary) hypertension; I25.10 Atherosclerotic heart disease of native coronary artery without angina pectoris; Z66 Do not resuscitate; Z79.82 Long term (current) use of aspirin; Z79.84 Long term (current) use of oral hypoglycemic drugs; Z79.899 Other long term (current) drug therapy; Z82.49 Family history of ischemic heart disease and other diseases of the circulatory system; Z86.73 Personal history of transient ischemic attack (TIA), and cerebral infarction without residual deficits
CPT/HCPCS: 31500; 36415; 36556; 36600; 70450; 71045; 80053; 81001; 82728; 82805; 83605; 83735; 83880; 84484; 85007; 85027; 85379; 85610; 85730; 86141; 87040; 87070; 87077; 87186; 87205; 87426; 93005; 93306; 93970; 94002; 94003; 96365; 96368; 96375; 99291; G0378; J0171; J0330; J0696; J1100; J2250; J7060